=== PATIENT | male | born 1945 | race Caucasian/White ===

== ENCOUNTER 2017-02-16 13:20 | Inpatient (IN) ==
--- NOTE | 2017-02-16 14:17 | Diag Imaging Result Doc PS360 ---
EXAM: CHEST-2 VIEWS HISTORY: ATRIAL FIB TECHNIQUE: PA and lateral chest COMMENT: The inspiration is suboptimal. There is ill-defined opacity posteriorly seen on the lateral view which is probably in the left lower lobe. There are no previous studies available for comparison. IMPRESSION: Atelectasis versus pneumonia in the left lower lobe. Electronically signed by Casper Dejesus 02/16/2017 2:15 PM
[2017-02-16] MEDS ORDERED: NS 3,000 ML ONE (14:22)
[2017-02-16] MEDS ORDERED: CARDIZEM IV ONE (14:26)
[2017-02-16 14:32] LABS: INR 1.12; PROTIME 11.9 Seconds (9.2-11.7)
--- NOTE | 2017-02-16 14:49 | PROVIDER DOCUMENTATION ---
HPI-General Adult - General Chief Complaint: Nausea/Vomiting Stated Complaint: WEAK SICK AT MY STOMACH Time Seen by Provider: 02/16/17 13:50 Allergies/Adverse Reactions: Patient Allergies Allergy/AdvReac Type Severity Reaction Status Date / Time Penicillins Allergy Mild ITCHING Verified 02/16/17 14:30 Home Medications: Home Medication List Medication Instructions Recorded Confirmed Last Taken Type Citalopram [Celexa] 20 mg PO DAILY 12/27/12 12/27/12 12/29/12 07:00 History Folic Acid 5 mg PO DAILY 12/27/12 12/27/12 12/28/12 19:00 History Infliximab [Remicade] 500 mg IV DIRECTED 12/27/12 12/27/12 12/13/12 History Losartan Potassium 50 mg PO DAILY 12/27/12 12/27/12 12/29/12 07:00 History Methotrexate 7.5 mg PO DIRECTED 12/27/12 12/27/12 12/25/12 07:00 History Metoprolol [Lopressor] 50 mg PO BID 12/27/12 12/27/12 12/29/12 07:00 History ROSUVAstatin [Crestor] 20 mg PO DAILY 12/27/12 12/27/12 12/28/12 20:00 History Hydrocodone/Acetaminophen [Lortab 1 each PO Q6H PRN PRN #30 tablet 12/28/1211/06 10:00 Rx 7.5-500 Tablet] Methocarbamol [Robaxin-750] 750 mg PO Q8H #20 tablet 12/29/12 Unknown Rx Progress - PLAN OF CARE/RESULTS Progress/Plan/Lab Results: Vital Signs - 8 hr 02/16/17 13:43 02/16/17 14:29 Temperature 98.3 F Pulse Rate 174 H 154 H Respiratory Rate 18 21 Blood Pressure 141/113 92/50 O2 Sat by Pulse Oximetry 96 93 L Laboratory Results - last 24 hr 02/16/17 02/16/17 14:15 14:15 PT 11.9 H INR 1.12 PTT (Actin FS) 29.0 Troponin T < 0.010 Orders Category Date Time Status CHEST-2 VIEWS [RAD] Stat Exams 02/16/17 13:55 Completed CBC WITH ELECTRONIC DIFF [HEME] Stat Lab 02/16/17 14:18 Ordered COMPREHENSIVE METABOLIC PANEL [CHEM] Stat Lab 02/16/17 14:18 Ordered D-DIMER [CHEM] Stat Lab 02/16/17 14:18 Ordered PRO B-NATRIURETIC PEPTIDE Stat Lab 02/16/17 14:15 Received PROTIME WITH INR [COAG] Stat Lab 02/16/17 14:15 Received PTT [COAG] Stat Lab 02/16/17 14:15 Received TROPONIN T Stat Lab 02/16/17 14:15 Received TSH Stat Lab 02/16/17 14:18 Ordered URINE DRUG SCREEN Stat Lab 02/16/17 13:55 Uncollected 0.9% Sodium Chloride Inj [Ns] 1,000 ml Med 02/16/17 14:22 Discontinued .ROUTE As Directed Diltiazem [Cardizem] Med 02/16/17 14:26 Once 10 mg IV NOW ONE EKG [EKG] Stat Ther 02/16/17 13:54 Ordered Departure - Departure Referrals and Follow-Ups: Kvng Erickson MD [Primary Care Provider] -
[2017-02-16] MEDS: NS 1,000 ML IV ONE ×2 (15:00→15:10)
[2017-02-16] MEDS ORDERED: CARDIZEM 100 MG/NS 100 MG/100 ML IVPB IV SCH ×2 (15:20→16:24)
[2017-02-16] MEDS ORDERED: CARDIZEM 125 MG in NS 100 ML IV PRN (15:23)
[2017-02-16 15:26] LABS: MANUAL DIFF NEEDED? NO
[2017-02-16 15:29] LABS: BASO% 0.2 % (0.0-0.8); EOS# 0.02 X1000 (0.0-0.7); EOS% 0.2 % (0.0-10.0); HEMATOCRIT 45.6 % (42.0-52.0); HEMOGLOBIN 15.4 g/dL (14.0-18.0); IMM GRAN# 0.02 X1000 (0.0-0.04); IMM GRAN% 0.2 % (0.0-0.5); LYMPH# 1.97 X1000 (1.2-3.4); LYMPH% 18.2 % (20.5-51.1); MCH 33.6 PG (27-31); MCHC 33.8 g/dL (33-37); MCV 99.6 FL (81-99); MONO# 1.03 X1000 (0.11-0.59); MONO% 9.5 % (1.7-9.3); MPV 11.2 FL (7.4-10.4); NEUT% 71.7 % (42.2-75.2); PLT 254 X1000 (130-400); RBC 4.58 XMIL (4.7-6.1)
--- NOTE | 2017-02-16 15:45 | PROVIDER DOCUMENTATION ---
This chart was entered by Meghan Coleman Scribe, acting as scribe for Jeffery Fuentes MD. HPI-General Adult - General Chief Complaint: Nausea/Vomiting Stated Complaint: WEAK SICK AT MY STOMACH Time Seen by Provider: 02/16/17 13:50 Source: patient Allergies/Adverse Reactions: Patient Allergies Allergy/AdvReac Type Severity Reaction Status Date / Time Penicillins Allergy Mild ITCHING Verified 02/16/17 14:30 Home Medications: Home Medication List Medication Instructions Recorded Confirmed Last Taken Type Citalopram [Celexa] 20 mg PO DAILY 12/27/12 12/27/12 12/29/12 07:00 History Folic Acid 5 mg PO DAILY 12/27/12 12/27/12 12/28/12 19:00 History Infliximab [Remicade] 500 mg IV DIRECTED 12/27/12 12/27/12 12/13/12 History Losartan Potassium 50 mg PO DAILY 12/27/12 12/27/12 12/29/12 07:00 History Methotrexate 7.5 mg PO DIRECTED 12/27/12 12/27/12 12/25/12 07:00 History Metoprolol [Lopressor] 50 mg PO BID 12/27/12 12/27/12 12/29/12 07:00 History ROSUVAstatin [Crestor] 20 mg PO DAILY 12/27/12 12/27/12 12/28/12 20:00 History Hydrocodone/Acetaminophen [Lortab 1 each PO Q6H PRN PRN #30 tablet 12/28/1211/06 10:00 Rx 7.5-500 Tablet] Methocarbamol [Robaxin-750] 750 mg PO Q8H #20 tablet 12/29/12 Unknown Rx - History of Present Illness -Gen Adult Nature of Presenting Problems: Pt is 71 y/o M presents to the ED with nausea, vomiting and diaphoresis. Pt states was working in his yard this am and around 1100 he started sweating. Pt denies chest pain and shortness of breath. Location of Pain/Injury: reports: none Pain Radiation: reports: no radiation Quality of Pain: reports: none Severity: reports: mild Onset/Duration: reports: this afternoon (1100) Timing: reports: still present Context/Activities at Onset: reports: light activity Modifying Factors: improves with: nothing Associated Symptoms: reports: diaphoresis, nausea, vomiting. denies: anxiety, arm pain, back/neck pain, chest pain, constipation, cough, diarrhea, dizziness, EENT symptoms, fatigue, fever/chills, genitourinary problems, headaches, heartburn, joint pain, loss of appetite, malaise, muscle aches, sinus congestion /drainage, rash, seizure, shortness of breath, sensory/motor loss, pain with inspiration, swelling/mass in abdomen, syncope, weakness, trouble walking Similar Symptoms Previously?: No Recently seen or treated by another doctor?: No Review of Systems - Adult - REVIEW OF SYSTEMS - ADULT Constitutional: denies: chills, fever Eyes: denies: decreased vision, blurred vision, double vision Ears, Nose, Mouth & Throat: denies: ear pain, nose pain, throat pain Cardiovascular: denies: chest pain, heart murmur, irregular heart rate Respiratory: denies: cough, shortness of breath, wheezing Gastrointestinal: reports: nausea, vomiting. denies: abdominal pain, diarrhea Genitourinary: denies: dysuria, flank pain, hematuria Musculoskeletal: denies: bone pain, joint pain, neck pain Integumentary: denies: hives, itching, rash Neurological: denies: dizziness/vertigo, headache/migraines, numbness, seizure, syncope Psychiatric: denies: anxiety, depression, suicidal thoughts Endocrine: reports: excessive sweating. denies: change in skin pigment, increased hunger, increased thirst Hematologic/Lymphatic: reports: no symptoms reported Allergic/Immunologic: reports: no symptoms reported All Other Systems: Reviewed and Negative Past History - Adult - PAST MEDICAL HISTORY-ADULT Review of Records: reports: Nursing Assessment Review, Medications Reviewed, Social history reviewed & non-contributory. Major Childhood Illnesses: reports: denies history Cardiovascular: reports: HTN Respiratory: reports: sleep apnea Gastrointestinal: reports: denies history Obstetrical/Gynecological: reports: denies history Genitourinary: reports: denies history Musculoskeletal: reports: arthritis Neurological: reports: denies history Endocrine/Immune: reports: denies history Other Conditions: reports: denies history - PRIOR SURGERIES/PROCEDURES Surgical/Procedure History: reports: joint replacement - IMMUNIZATION STATUS Childhood Immunizations: See Nurse Assessment Flu Vaccine: See Nurse Assessment - FAMILY HISTORY Family History: reviewed, not pertinent - SOCIAL HISTORY Smoking: denies Substance Use: alcohol Alcohol Use Frequency: occasionally Number of drinks per typical drinking period:: 2 drinks Living Situation: family Physical Exam-General - PHYSICAL EXAM-ADULT Initial Vital Signs Reviewed: Yes - CONSTITUTIONAL General Appearance: appears well, alert, no apparent distress. negative: lethargic, slow to respond - EYES Eyes: PERRL/EOMI, pink conjunctivae. negative: pale conjunctivae, sunken eyes - HEAD, EARS, NOSE, MOUTH & THROAT HENMT: normocephalic/atraumatic, moist mucous membranes, normal ENT inspection. negative: angioedema, hearing deficit - NECK Neck: non-tender, normal inspection. negative: lymphadenopathy, tender lateral - RESPIRATORY Respiratory: chest non-tender, lungs clear, normal breath sounds. negative: rhonchi, stridor, wheezing - CARDIOVASCULAR Cardiovascular: normal peripheral pulses, tachycardia, other (new onset A fib with RVR). negative: regular rate, rhythm, systolic murmur - GASTROINTESTINAL (ABDOMEN) Abdominal Exam: normal bowel sounds, non tender, soft. negative: distended, rebound - LYMPHATIC Lymphatic: no adenopathy. negative: enlargement, streaking - MUSCULOSKELETAL Back Exam: normal inspection, no CVA tenderness, no vertebral tenderness. negative: ecchymosis, swelling Extremity: normal range of motion, normal inspection. negative: deformity, erythema, tenderness - SKIN Integumentary: normal color, normal turgor, warm/dry. negative: diaphoresis, ecchymosis, erythema, jaundice - NEUROLOGIC Neurologic: grossly normal. negative: aphasia, facial droop - PSYCHIATRIC Psych/Mental Status: normal mood/affect, oriented x 3. negative: paranoid, tearful Progress - PLAN OF CARE/RESULTS Progress/Plan/Lab Results: Vital Signs - 8 hr 02/16/17 13:43 02/16/17 14:29 Temperature 98.3 F Pulse Rate 174 H 154 H Respiratory Rate 18 21 Blood Pressure 141/113 92/50 O2 Sat by Pulse Oximetry 96 93 L Laboratory Results - last 24 hr 02/16/17 02/16/17 14:15 14:15 PT 11.9 H INR 1.12 PTT (Actin FS) 29.0 Troponin T < 0.010 Orders Category Date Time Status CHEST-2 VIEWS [RAD] Stat Exams 02/16/17 13:55 Completed CBC WITH ELECTRONIC DIFF [HEME] Stat Lab 02/16/17 14:18 Ordered COMPREHENSIVE METABOLIC PANEL [CHEM] Stat Lab 02/16/17 14:18 Ordered D-DIMER [CHEM] Stat Lab 02/16/17 14:18 Ordered PRO B-NATRIURETIC PEPTIDE Stat Lab 02/16/17 14:15 Received PROTIME WITH INR [COAG] Stat Lab 02/16/17 14:15 Completed PTT [COAG] Stat Lab 02/16/17 14:15 Completed TROPONIN T Stat Lab 02/16/17 14:15 Completed TSH Stat Lab 02/16/17 14:18 Ordered URINE DRUG SCREEN Stat Lab 02/16/17 13:55 Uncollected 0.9% Sodium Chloride Inj [Ns] 1,000 ml Med 02/16/17 14:22 Discontinued .ROUTE As Directed Diltiazem [Cardizem] Med 02/16/17 14:26 Discontinued 10 mg IV NOW ONE EKG [EKG] Stat Ther 02/16/17 13:54 Ordered Result Diagrams: 02/16/17 14:15 - REASSESSMENT Reassessment #1 Time Reassessed: 15:22 (Patient was given a total of 2 L NS. 10mg IV cardizem. BP dropped to 82/50. Patient BNP ~3200 no prior for comparison. Questionable LLL pneumonia vs atelectasis. Sepsis work up started. ) Reassessment #2 Time Reassessed: 15:38 (Discussed with Dr. Erickson in regards to patient admission. Stated patient will be assesed in ED by Dr. Erickson ) - CONSULTS/PCP/HOSPITALIST Notification #1 *Consult/PCP/Hospitalist*: . Time Discussed: 15:43 Consult Disposition: Will see in ED Departure - Departure Date of Disposition Decision: 02/16/17 Time of Disposition Decision: 15:43 DIAGNOSIS: New onset atrial fibrillation Sepsis Qualifiers: Sepsis type: sepsis due to unspecified organism Qualified Code(s): A41.9 - Sepsis, unspecified organism Disposition: ADMITTED INPATIENT 09 Certified Medical Emergency: Emergent Condition: Critical Referrals and Follow-Ups: Kvng Erickson MD [Primary Care Provider] - - Critical Care Note This patient required my direct & personal management of CC.: Yes Total Time (mins): 47 Critical Care Statement: This patient required my direct personal management to treat or rule out processes, the absence of which, could potentiallly result in sudden, clinically significant life or limb threatening deterioration. Attestation - Physician/ MARK Attestation Patient care was provided by Advanced Practice Provider:: No The physician spent face to face time with patient:: Yes Advanced Practice Provider documentation review:: Supervising physician onsite and consulted in the evaluation and care of this patient. The physician did have a face to face encounter with the patient. This chart was documented by the indicated scribe, (Meghan Coleman Scribe) and accurately reflects the services I performed and decisions made by me, Jeffery Fuentes MD, as attested by the provider's signature.
[2017-02-16 15:48] LABS: ALBUMIN 4.2 g/dL (3.5-5.0); CALCIUM 9.6 mg/dL (8.8-10.2); POTASSIUM 4.2 mmol/L (3.5-5.1); TOTAL BILIRUBIN 1.12 mg/dL (0.20-1.00); TOTAL PROTEIN 7.4 g/dL (6.3-8.3)
--- NOTE | 2017-02-16 15:55 | ED EKG INTERP ---
This chart was entered by Meghan Coleman Scribe, acting as scribe for Rafiq Barth MD. EKG Interpretation - EKG Time of EKG reading by physician:: 13:48 EKG Read and Signed by:: Prieto Barth EKG Interpretation (*Must complete 3 of following elements*): Abnormal Rate: 170 Rhythm: atrial fibrillation with rapid ventricular response Comments: left axis deviation; nonspecific ST and T wave abnormality Attestation - Physician/ MARK Attestation The physician spent face to face time with patient:: Yes Advanced Practice Provider documentation review:: Supervising physician onsite and consulted in the evaluation and care of this patient. The physician did have a face to face encounter with the patient. This chart was documented by the indicated scribe, (Meghan Coleman Scribe) and accurately reflects the services I performed and decisions made by me, Prieto Barth MD, as attested by the provider's signature.
[2017-02-16] MEDS ORDERED: CARDIZEM 125 MG in NS 100 ML IV SCH (16:30)
[2017-02-16] MEDS ORDERED: LANOXIN IV ONE (16:38)
[2017-02-16] MEDS: CARDIZEM 100 MG/NS 100 MG/100 ML IVPB IV SCH ×3 (16:56→18:14)
[2017-02-16] MEDS ORDERED: LEVAQUIN 750 MG/D5W 750 MG/150 ML IVPB IV ONE (17:28)
--- NOTE | 2017-02-16 17:50 | HISTORY AND PHYSICAL ---
PRIMARY CARE PHYSICIAN: Dr. Kvng Erickson. CHIEF COMPLAINT: Diaphoresis. HISTORY OF PRESENT ILLNESS: This is a 71-year-old white male with a complicated past medical history, presents for evaluation of the above-mentioned symptoms. Current history of present illness began at approximately 11 a.m. 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 Upon doing so, he developed profound diaphoresis. Patient states that he slowed his work, but was unable to halt the persistent diaphoresis. He noted some weakness as well as some mild nausea. He did complain of mild disorientation. Patient stopped work and ate lunch. He noted a loss of his appetite. Because of his persistent symptoms, he contacted my office. Unfortunately, we were not available at that time. He then contacted his . She instructed him to go to the emergency department immediately. Upon arrival, a full evaluation was pursued. The patient was noted to have atrial fibrillation with a rapid ventricular response. In addition, he was found to have a slightly elevated white blood cell count of 10.8 and a slightly abnormal chest x-ray. The patient will be admitted to the hospital for full evaluation and management of each of these conditions. Of note, patient denies chest pain, cough, congestion, fevers, chills, palpitations, shortness of breath, dysuria, hematuria, pyuria, or changes in bowel movements. He denies any sick contacts to his knowledge. PAST MEDICAL HISTORY: 1. History of left axis deviation per EKG. 2. Abnormal skin examination with multiple actinic keratoses. 3. Status post bilateral cataract removals. 4. Depression/anxiety. 5. Reflux disease. 6. Hypertension. 7. Hearing loss. 8. Hyperlipidemia. 9. Mild enlargement of the right ventricle and mild degree of pulmonary hypertension per echocardiogram in 2009. 10. Impaired fasting glucose. 11. Cervical disk disease. 12. Mild memory impairment. 13. Obstructive sleep apnea. 14. Obesity. 15. Osteopenia. 16. History of bilateral total hip arthroplasties. 17. Rheumatoid arthritis. 18. History of a Banegas's cyst removal of the right posterior knee in 1999. CURRENT MEDICATIONS: 1. Atorvastatin 40 mg 1/2 tablet at bedtime. 2. B-complex vitamin daily. 3. Calcium plus vitamin D twice daily. 4. Folic acid 1 mg daily. 5. Losartan 50 mg daily. 6. Meloxicam 15 mg daily as needed. 7. Methotrexate 2.5 mg 3 tablets on Mondays. 8. Metoprolol tartrate 25 mg twice daily. 9. Multivitamin daily. 10. Reclast once a year. 11. Remicade 100 mg every 8 weeks. 12. Sertraline 100 mg daily. 13. Tramadol 50 mg as needed. 14. Zyrtec 10 mg daily as needed. ALLERGIES: Patient states he is allergic to penicillin. SOCIAL HISTORY: The patient is previous smoker, having smoked 1 pack per day for 20 years. He stopped in November 1985. He has approximately 8 drinks per week. Denies illicit drug use. 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 He currently works for [employer]. He enjoys gardening, bird watching, and yard work. He exercises intermittently. FAMILY HISTORY: Patient's father passed at age 82 secondary to complications of congestive heart failure. Patient's mother is described as healthy at age 85. REVIEW OF SYSTEMS: A 12 point review of systems was performed. Pertinent positives and negatives are noted in history present illness. PHYSICAL EXAMINATION: VITAL SIGNS: Temperature 98.3 degrees, heart rate 127, respirations 18, blood pressure 92/58. GENERAL: Well nourished, well developed, no acute distress. HEENT: Normocephalic, atraumatic. Pupils equal, round, reactive to light. Extraocular muscles intact. Sclerae anicteric. Meno conjunctivae. Oral and nasopharynx clear without exudate. NECK: Supple. No lymphadenopathy. No thyromegaly. No bruits auscultated. CARDIOVASCULAR: Tachycardic. Irregularly irregular rhythm. No significant murmurs, rubs, or gallops. PULMONARY: Clear to auscultation bilaterally. ABDOMEN: Soft, nontender, nondistended. Positive bowel sounds. EXTREMITIES: Moves all extremities well. No significant clubbing, cyanosis, or edema. NEUROLOGIC: Cranial nerves 2 through 12 grossly intact. Motor and sensory grossly intact. PSYCHOLOGIC: Examination is appropriate. LABORATORY DATA: White blood cell count 10.81, hemoglobin 15.4, hematocrit 45.6, platelet count 254,000. PT 11.9, INR is 1.12, PTT is 29.0. D-dimer less than 0.010. Sodium 139, potassium 4.2, chloride 99, bicarb 21, BUN 25, creatinine 1.4, glucose 109, calcium 9.6, total bilirubin 1.12, total protein 7.4, albumin 4.2, alkaline phosphatase 61, AST 20, ALT 15. TSH is 3.64. Chest x- ray reveals atelectasis versus pneumonia in the left lower lobe. ASSESSMENT AND PLAN: This is a 71-year-old white male with a complicated past medical history as noted, presents for evaluation of diaphoresis. Full evaluation revealed atrial fibrillation with rapid ventricular response. Because of his elevated heart rate, slightly elevated white blood cell count, and slightly abnormal chest x-ray, patient met criteria for sepsis protocol. Each of these diagnoses will be pursued. 1. Admit to CICU. 2. Atrial fibrillation with rapid ventricular response - The patient has multiple risk factors. At this point, patient's heart rate remains elevated and his blood pressure is borderline. We will continue a Cardizem drip. We will add digoxin 0.25 mg as a now dose and again in 8 hours. We will follow serial cardiac enzymes. We will check a magnesium level. We will follow patient on telemetry overnight. I have discussed the case with Dr. Jade and he will be available for consultation. We will start Lovenox. 3. Sepsis protocol - At this point, I suspect patient's abnormalities are simply secondary to atrial fibrillation with rapid ventricular response and pulmonary atelectasis. As he has met criteria, we will pursue a sepsis protocol until this can be fully ruled out. We will check a CT scan of the chest. We will follow this closely. 4. Hypertension - The patient has a history of hypertension, currently being treated with losartan and metoprolol therapy. We will hold patient's losartan. We will follow patient's blood pressure closely while hospitalized. 5. Weakness/diaphoresis - This likely is secondary to his atrial fibrillation with rapid ventricular response. We will treat this as above. We will follow this closely. 6. Rheumatoid arthritis - This certainly complicates the patient's presentation. This also puts him at risk for underlying atypical infections. We will remain aware. 7. Depression/anxiety - We will continue patient on sertraline therapy. 8. Hyperlipidemia - Will continue patient on atorvastatin. 9. Fluid, electrolytes, nutrition - We will monitor electrolytes. Normal saline at KVO. Cardiac prudent diet. 10. Prophylaxis - Patient will be placed on subcutaneous Lovenox at therapeutic doses. cc: Kvng Erickson MD
[2017-02-16 17:54] LABS: UR AMPHETAMINES QUAL NONE DETECTED (NONE DETECT); UR BARBITUATES QUAL NONE DETECTED (NONE DETECT); UR BENZODIAZEPIN QUAL NONE DETECTED (NONE DETECT); UR CANNABINOIDS QUAL NONE DETECTED (NONE DETECT); UR COCAINE QUAL NONE DETECTED (NONE DETECT); UR METHADONE QUAL NONE DETECTED (NONE DETECT); UR OPIATES QUAL NONE DETECTED (NONE DETECT); UR OXYCODONE QUAL NONE DETECTED (NONE DETECT); UR PCP QUAL NONE DETECTED (NONE DETECT)
--- NOTE | 2017-02-16 18:49 | Diag Imaging Result Doc PS360 ---
EXAM: CT THORAX W/O CONTRAST HISTORY: Abnormal CXR TECHNIQUE: CT of the chest without contrast with dose reduction (clarity.) COMMENT: There are apparent fibrotic changes in the lung bases particularly in the costophrenic sulci posterior laterally. There are granulomata in the right lower lobe and spleen. There are no abnormal fluid collections. There is no evidence of significant adenopathy. There are some coronary calcifications and calcified nodes in the right hilum. There are degenerative changes in the thoracic spine. There is apparent ankylosis of the right glenohumeral joint. There are two subcentimeter noncalcified nodules in the right upper lobe on image 45 measuring less than 5 mm in diameter. There are no previous studies. IMPRESSION: Apparent tip pulmonary parenchymal fibrosis and granulomatous changes. Nonspecific right upper lobe nodules. The findings were discussed with Kvng Erickson MD at 02/16/2017 6:46 PM. Electronically signed by Casper Dejesus 02/16/2017 6:46 PM
[2017-02-16] MEDS: CALTRATE 600 + D PO SCH (21:59)
[2017-02-16] MEDS: LOVENOX SUBQ SCH (22:00)
[2017-02-16] MEDS: LOPRESSOR PO SCH (22:00)
[2017-02-16] MEDS: LIPITOR PO SCH (22:00)
[2017-02-16] MEDS: ULTRAM PO PRN (22:01)
[2017-02-17] MEDS ORDERED: LANOXIN IV ONE (01:00)
[2017-02-17 05:21] LABS: MANUAL DIFF NEEDED? NO
[2017-02-17 05:51] LABS: BASO% 0.5 % (0.0-0.8); EOS# 0.09 X1000 (0.0-0.7); EOS% 1.4 % (0.0-10.0); HEMATOCRIT 39.1 % (42.0-52.0); HEMOGLOBIN 12.9 g/dL (14.0-18.0); LYMPH# 2.37 X1000 (1.2-3.4); LYMPH% 37.2 % (20.5-51.1); MCH 33.6 PG (27-31); MCV 101.8 FL (81-99); MONO# 0.84 X1000 (0.11-0.59); MONO% 13.2 % (1.7-9.3); MPV 10.9 FL (7.4-10.4); NEUT% 47.7 % (42.2-75.2); PLT 186 X1000 (130-400); RBC 3.84 XMIL (4.7-6.1)
[2017-02-17 05:55] LABS: AGAP 15; ALBUMIN 3.6 g/dL (3.5-5.0); ALKALINE PHOSPHATASE 52 U/L (32-122); BUN 21 mg/dL (8-22); CALCIUM 8.5 mg/dL (8.8-10.2); CHLORIDE 104 mmol/L (98-107); COSMO 284; GOT 15 U/L (10-34); GPT 13 U/L (10-44); POTASSIUM 4.2 mmol/L (3.5-5.1); SODIUM 141 mmol/L (136-145); TCO2 22 mmol/L (25-35); TOTAL PROTEIN 6.2 g/dL (6.3-8.3)
[2017-02-17 05:58] LABS: FREE T4 1.43 ng/dL (0.93-1.70)
--- NOTE | 2017-02-17 06:37 | EKG Report ---
Test Performed on : 02/16/2017 1:48:32 PM Test Reason : NO ORDER Blood Pressure : / mmHG Vent. Rate : 170 BPM Atrial Rate : 197 BPM P-R Int : 000 ms QRS Dur : 078 ms QT Int : 260 ms P-R-T Axes : 000 -31 077 degrees QTc Int : 437 ms Atrial fibrillation. with rapid ventricular response. Left axis deviation Nonspecific ST and T wave abnormality Abnormal ECG No previous ECGs available Unconfirmed Result
[2017-02-17] MEDS: ZOLOFT PO SCH (09:22)
[2017-02-17] MEDS: THERA M PLUS PO SCH (09:22)
[2017-02-17] MEDS: FOLIC ACID PO SCH (09:22)
[2017-02-17] MEDS: CALTRATE 600 + D PO SCH ×2 (09:22→20:41)
[2017-02-17] MEDS: LANOXIN PO SCH (09:22)
[2017-02-17] MEDS: CARDIZEM LA PO SCH (09:22)
[2017-02-17] MEDS: LOVENOX SUBQ SCH (09:22)
--- NOTE | 2017-02-17 11:02 | EKG Report ---
Test Performed on : 02/17/2017 10:12:50 AM Test Reason : afib/ASHD/CHF Blood Pressure : / mmHG Vent. Rate : 057 BPM Atrial Rate : 057 BPM P-R Int : 148 ms QRS Dur : 088 ms QT Int : 440 ms P-R-T Axes : 045 -28 029 degrees QTc Int : 428 ms Sinus bradycardia. Otherwise normal ECG When compared with ECG of 16-FEB-2017 13:48, (Unconfirmed) Sinus rhythm. has replaced Atrial fibrillation. Vent. rate has decreased BY [address] no longer depressed in Anterior leads Leftward axis inferiorly III and AVF Flat T waves no longer evident in V2 Confirmed by Roland Mancia DO ([id number]) on 02/20/2017 4:37:50 PM
--- NOTE | 2017-02-17 11:42 | CONSULTATION ---
DATE OF CONSULTATION: 02/17/2017 REQUESTING PHYSICIAN: Dr. Erickson. REASON FOR CONSULTATION: New-onset atrial fibrillation, congestive heart failure. HISTORY: Mr. 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 He felt very weak at that time and slightly nauseous. He did not feel like eating. He got off work at about 1 p.m., and then after that, he chose to come to the emergency room for evaluation, suspecting that something was not right. In fact , when he came into the emergency room, he was found in atrial fibrillation with a rapid response. An electrocardiogram done at 1:48 p.m. showed atrial fibrillation, rate 170 beats per minute, a leftward axis, and a minor nonspecific ST change. The patient was placed on Cardizem drip and digoxin, and he was kept in the emergency room overnight, transferred to [facility], and overnight he has converted back to sinus rhythm. I am seeing him at 7 a.m. on February 17. The patient basically is back to his normal self. He is feeling well, somewhat tired, but having no discomfort in the chest, no swelling of the legs, no nausea, no more sweats, and no palpitations at all. The patient makes clear that he did not know that his pulse was irregular, he did not notice palpitations, he did not have any blackout spell. PAST MEDICAL HISTORY: His past medical history basically is negative for previous arrhythmia. He does have a history of hypertension for a number of years which has been treated by Dr. Erickson. He does have a history of elevated cholesterol which is also being treated by Dr. Erickson. He has been diagnosed with obstructive sleep apnea, and he has been treated by Dr. Harris with a CPAP system. He has rheumatoid arthritis for a long time, and this is being treated by Dr. Peralta with a combination of 2 drugs. He has some gastric reflux. He has had some neck arthritis. He has had no other major medical issues. He is not diabetic. He does have some history of anxiety. Also, there is some hearing loss in him. SURGICAL HISTORY: He has had a Banegas cyst removed. He had both hips replaced in the past. He has had cataract surgery. HOME MEDICATIONS: At this time are as follows: He takes folic acid 1 mg, methotrexate 7.5 daily, Zoloft 100 daily, calcium, magnesium 2 tablets daily, multivitamins daily, meloxicam 15 mg daily, Ultram 100 daily, Remicade 500 mg as directed, metoprolol 50 daily, losartan 50 daily. ALLERGIES: He is allergic to penicillin. REVIEW OF SYSTEMS: The patient states that since his penitentiary he has done very little activity at home. He says that when he retired about 5 years ago, he weighed about 210 pounds. Currently, he is 280 pounds. Body mass index is 40, making him morbidly obese. 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 Mancia. He has had some aches and pains in the neck for which he takes arthritis medication. No cardiac issues that he is aware of. SOCIAL HISTORY: He has been to his for nearly 50 years now. They have 3 grownup children ages 40, 38, and 36. He quit smoking at the age of 41 after smoking a pack a day for 20 years. He uses some alcoholic drinks from time to time. The patient has retired from [employer] about 5 or 6 years ago. 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 He has a business degree and marketing degree. FAMILY HISTORY: Somewhat positive for heart disease in his parents in their mid to early 80s. PHYSICAL EXAMINATION: Vital signs: His blood pressure today is 91/44, pulse 59 , temperature 97.6, respirations 18. General: He is awake, alert, oriented, in no distress. HEENT: Unremarkable. Skin: Shows evidence of vitiligo in the forearms. He does have some deformity of his legs probably related to rheumatoid arthritis. HEENT: Otherwise unremarkable. Neck veins are not distended. No cervical bruits. Chest; Sounds clear to auscultation and percussion. Cardiac: Heart sounds are regular and rhythmic at this time. I do not hear any gallop or murmur. Abdomen: Obese, nontender. Extremities: Good pulses, no peripheral edema. Neurological: Follows commands, moves four extremities. BLOOD WORK: Sodium 141, potassium 4.2, BUN 21, creatinine 0.8. On the day of admission, his creatinine was up to 1.4. BUN was 25. His proBNP is 3263. Troponins are negative. PT, PTT normal. D-dimer negative. Toxic drug screen negative. Hemoglobin 12.9. White cell count 6370. IMPRESSION: 1. Patient presenting with atrial fibrillation which appears to be new onset. This did not present with palpitations or chest pain. It manifested mostly as diaphoresis and weakness. He has converted already to sinus rhythm. That suggests paroxysmal atrial fibrillation. 2. History of hypertension. 3. History of sleep apnea syndrome. 4. Morbid obesity. 5. Hyperlipidemia. 6. Long-term history of rheumatoid arthritis on long-term therapy with immunosuppressing agents, Remicade and methotrexate. 7. Vitiligo. 8. Suspect diastolic heart failure related to the persistent atrial fibrillation. 9. Coronary artery calcification noted on CT of chest. RECOMMENDATION: At this point in time, I would suggest to pursue a myocardial perfusion stress test using Lexiscan protocol to exclude severe obstructive coronary heart disease. It is possible that this arrhythmia may be a manifestation of that condition, especially since he has gained so much weight since penitentiary and since his new job, which he started less than a month ago, is really very physical, and that is something he was not accustomed to. I would also recommend to this patient to initiate long-term anticoagulation with an oral anticoagulant like Eliquis 5 mg twice a day. If his echocardiogram and his stress test today are negative, then I believe he could probably be safely discharged. I would add a low dose of long- acting Cardizem CD 120 to his regimen, and I would be very happy to arrange for a followup at the office. Thank you again for the opportunity to participate in his evaluation. Best regards. The case was discussed with Dr. Erickson prior to the conclusion of this dictation. cc: MD Kvng Vazquez MD [facility] CENTERDouglas
[2017-02-17] MEDS: LOPRESSOR PO SCH ×2 (13:08→20:40)
[2017-02-17] MEDS ORDERED: LEXISCAN ONE (14:18)
[2017-02-17] MEDS ORDERED: LEVAQUIN 500 MG/D5W 500 MG/100 ML IVPB IV SCH (19:30)
--- NOTE | 2017-02-17 19:32 | ECHO REPORT ---
ORDER DATE: 02/16/2017 INTERPRETING PHYSICIAN: Dr. Jade REQUESTING PHYSICIAN: CLINICAL INDICATIONS: Atrial fibrillation, obese, hypertension. M-MODE MEASUREMENTS: Right ventricle: 3.9 cm. Left ventricle end diastole: 5.1 cm. Left ventricle end systole: 3.5 cm. Posterior wall: 1.1 cm. Interventricular septum: 1.1 cm. Left atrium: 4.9 cm. Aortic root: 3.7 cm. SUMMARY OF 2-DIMENSIONAL IMAGING: The left ventricular function is normal. Ejection fraction 73%. The ventricular chamber is probably within normal range. The right ventricle appears to be moderately enlarged. It shows normal function. The mitral valve looks normal. Color flow mapping indicates a mild degree of regurgitation. Pulse wave Doppler of mitral inflow is normal. Tissue Doppler of septal and lateral mitral annulus averages 11 cm per second. There is no diastolic dysfunction. The aortic valve is opens normally. Color flow mapping indicates no regurgitation. There is no aortic stenosis. The tricuspid valve shows a [id number] degree of regurgitation. The inferior vena cava is at the upper limits of normal to mildly enlarged. Pulmonary pressure is somewhere in the range of 44-49 mmHg. The pulmonic valve looks grossly normal with a mild degree of regurgitation. Pulmonary venous flow is normal. The left atrium is probably moderately enlarged. IMPRESSION: In summary, this study showed: 1. Excellent left ventricular systolic function. Ejection fraction 73%. No wall motion abnormality. 2. Ddhb-sy-dzyrpald degree of tricuspid and pulmonic regurgitation. 3. Pulmonary pressure estimated at 44-49 mmHg. 4. Normal diastolic function. The patient was in sinus rhythm during this study. 5. There is a moderately enlarged right ventricle. Clinical correlation recommended. cc: MD Kvng Vazquez MD
--- NOTE | 2017-02-17 19:45 | Diag Imaging Result Document ---
PROCEDURE NAME: MYOCARDIAL PERF SCAN, STR/REST - 02/17/2017 STUDY: Rest-stress walking Lexiscan myocardial perfusion study. INDICATION: Patient with congestive heart failure, coronary calcification, paroxysmal atrial fibrillation. Coronary heart disease is being evaluated. DESCRIPTION: The patient came into the [facility] on February 17, received a rest injection of technetium 99 sestamibi 15.9 millicuries. Multiple tomographic views of the cardiac structure were obtained at rest. Subsequently the patient underwent a walking Lexiscan protocol with infusion of Lexiscan 0.4 mg. At peak infusion, injected with technetium 99 sestamibi 44.2 millicuries. Multiple tomographic views of the cardiac structure were obtained following the completion of the protocol. SUMMARY OF ELECTROCARDIOGRAPHIC PORTION OF STUDY: Resting ECG showed sinus rhythm, rate 64 beats per minute. Resting blood pressure 170/87. Resting ECG shows no significant ST-T abnormalities. During the protocol, the heart rate increased to 98 beats per minute. Blood pressure went up to 180/88. The patient reported no chest pain, shortness of breath, or palpitations. The ECG showed occasional PVCs. No ischemic changes were noted. Following the completion of the infusion, the heart rate and blood pressure returned back to baseline. IMPRESSION: In summary, the electrocardiographic response to infusion of Lexiscan is deemed to be unremarkable. SUMMARY OF MYOCARDIAL PERFUSION PORTION OF STUDY: Poststress tomographic views of the left ventricle showed essentially normal myocardial perfusion. There is no convincing evidence of any postexercise defect. Rest images showed the same. There is no convincing evidence of scar. Polar plots revealed the same. There is no convincing evidence of inducible ischemia or myocardial scar. Gated SPECT shows normal left ventricular systolic function. Ejection fraction estimated at 84% with normal ventricular volumes. No wall motion abnormality. The lung-heart ratio is slightly elevated. TID is normal. IMPRESSION: In summary, this study showed: 1. Unremarkable electrocardiographic response to the walking Lexiscan protocol. 2. Normal poststress myocardial perfusion scan. There is no scintigraphic evidence of pharmacologically induced myocardial ischemia utilizing the walking Lexiscan protocol. 3. Normal left ventricular systolic function. Ejection fraction estimated at 84% with normal ventricular volumes. No wall motion abnormality. 4. The lung-heart ratio was slightly elevated which is consistent with the patient's initial presentation with pulmonary congestion. Clinical correlation recommended. cc: Yaron Jade MD
[2017-02-17] MEDS: LIPITOR PO SCH (20:40)
--- NOTE | 2017-02-17 20:43 | PROGRESS NOTE ---
DATE: 02/17/2017 SUBJECTIVE: Patient was admitted yesterday with atrial fibrillation with rapid ventricular response. He was placed on a Cardizem drip and provided IV digoxin. Within a matter of several hours, patient converted back to a normal sinus rhythm. Since that time, patient states he has felt much improved. Dr. Jade with Cardiology was consulted. A stress test was performed today which returned without evidence of ischemia. Echocardiogram did not suggest significant abnormalities. The patient states he is feeling well, however, interestingly, his blood cultures have returned positive. He denies fevers, chills, nausea, vomiting, shortness of breath, or chest discomfort. OBJECTIVE: Vital signs: Temperature maximum 98 degrees, heart rate 64-75, respirations 18, blood pressure 91 to 118 over 44 to 67. General: Well nourished, well developed, no acute distress. Cardiovascular: Regular rate and rhythm. No significant murmurs, rubs, or gallops. Pulmonary: Clear to auscultation bilaterally. Abdomen: Soft, nontender, nondistended. Positive bowel sounds. Extremities: Moves all extremities well. No significant clubbing, cyanosis, or edema. Dermatologic: Evaluation reveals no evidence of rash. LABORATORY DATA: White blood cell count 6.37, hemoglobin 12.9, hematocrit 39.1, platelet count 186,000. Sodium 141, potassium 4.2, chloride 104, bicarb 22, BUN 21, creatinine 0.8, glucose 98, calcium 8.5, total bilirubin 0.8. Total protein 6.2, albumin 3.6, alkaline phosphatase 52, AST 15, ALT 13, CK total 68, troponin less than 0.010. TSH 2.59, free T4 1.43. ASSESSMENT AND PLAN: 1. Atrial fibrillation with rapid ventricular response-as above, patient's stress test today returned negative. Echocardiogram was without significant abnormalities. I appreciate Dr. Jade's consultation. Earlier today, we converted patient to oral Cardizem and digoxin therapy. We will continue this. Eliquis therapy will be initiated in the a.m. We will follow patient's clinical course closely. 2. Positive blood cultures-this is quite interesting. There is no evidence of a definitive source. Initial evaluation suggested underlying Enterobacter. We will repeat blood cultures today. We will provide antibiotics overnight. I plan to discuss this further with Dr. Kaplan in the a.m. 3. Hypertension. The patient's blood pressure is controlled on metoprolol and Cardizem therapy. His losartan has been held. 4. Weakness/diaphoresis-this likely was secondary to atrial fibrillation with rapid ventricular response. He has achieved improvement with conversion. 5. Rheumatoid arthritis-this puts patient at risk for underlying infection. We will remain aware. 6. Depression/anxiety-we will continue patient on sertraline therapy. 7. Hyperlipidemia-we will continue atorvastatin therapy. 8. Disposition-at this point, patient continues to require detention care in a hospital setting. We will plan discharge home once appropriate. cc: Kvng Erickson MD
[2017-02-17 21:21] LABS: URINE CULTURE NEEDED? NO; URINE MICRO REVIEW NEEDED? NO; URINE SOURCE CLEAN CATCH
[2017-02-17 21:26] LABS: BILIRUBIN URINE NEGATIVE (NEGATIVE); BLOOD URINE TRACE (NEGATIVE); COLOR YELLOW; GLUCOSE URINE NEGATIVE (NEGATIVE); LEUKOCYTES URINE NEGATIVE (NEGATIVE); NITRITE URINE NEGATIVE (NEGATIVE); PROTEIN URINE NEGATIVE (NEGATIVE); SP GRAVITY URINE 1.016; TURBIDITY URINE CLEAR (CLEAR); UROBILINOGEN URINE NORMAL (NORMAL)
[2017-02-17 21:27] LABS: UR EPITHELIAL CELLS <10 /HPF (<10); URINE BACTERIA NEGATIVE /HPF; URINE RBC <10 /HPF (<10); URINE WBC <10 /HPF (<10)
[2017-02-17] MEDS: ULTRAM PO PRN (22:02)
[2017-02-18] MEDS: TYLENOL PO PRN ×2 (01:18→22:02)
[2017-02-18 05:06] LABS: MANUAL DIFF NEEDED? NO
[2017-02-18 05:12] LABS: BASO% 0.4 % (0.0-0.8); EOS# 0.09 X1000 (0.0-0.7); EOS% 1.6 % (0.0-10.0); HEMATOCRIT 39.4 % (42.0-52.0); HEMOGLOBIN 12.9 g/dL (14.0-18.0); LYMPH# 2.09 X1000 (1.2-3.4); LYMPH% 37.3 % (20.5-51.1); MCH 33.4 PG (27-31); MCHC 32.7 g/dL (33-37); MCV 102.1 FL (81-99); MONO# 0.73 X1000 (0.11-0.59); MPV 10.7 FL (7.4-10.4); NEUT% 47.7 % (42.2-75.2); PLT 182 X1000 (130-400); RBC 3.86 XMIL (4.7-6.1)
[2017-02-18 05:27] LABS: AGAP 13; BUN 17 mg/dL (8-22); CALCIUM 8.4 mg/dL (8.8-10.2); CHLORIDE 104 mmol/L (98-107); COSMO 283; POTASSIUM 4.3 mmol/L (3.5-5.1); SODIUM 141 mmol/L (136-145); TCO2 24 mmol/L (25-35)
[2017-02-18] MEDS: ELIQUIS PO SCH ×3 (06:06→21:01)
[2017-02-18] MEDS: CARDIZEM LA PO SCH (09:29)
[2017-02-18] MEDS: CALTRATE 600 + D PO SCH ×2 (09:29→21:01)
[2017-02-18] MEDS: ZOLOFT PO SCH (09:30)
[2017-02-18] MEDS: THERA M PLUS PO SCH (09:30)
[2017-02-18] MEDS: FOLIC ACID PO SCH (09:30)
[2017-02-18] MEDS: LANOXIN PO SCH (09:31)
[2017-02-18] MEDS: LOPRESSOR PO SCH ×2 (09:31→21:01)
--- NOTE | 2017-02-18 15:13 | CONSULTATION ---
DATE OF CONSULTATION: 02/18/2017 CONCLUSION: The patient was admitted to the hospital with atrial fibrillation with a rapid ventricular response. Two blood cultures were drawn; both are growing gram positive cocci. Whether this represents a true bacteremia or it could be that if the blood cultures have different organisms especially if they are identified as coagulation negative Staphylococcus, then I would say that they are contaminants and the patient does not really have a bacteremia. If the patient's organisms are the same, as mentioned above, I would say he has a true bacteremia and the portal of entry could be one of many sores the patient has on his arms where he is had skin cancers frozen off. One area especially on his elbow is indurated and appears to have cellulitis there, and that could have been a portal of entry for the presumed bacteremia. RECOMMENDATIONS: Because the patient has some difficulties with being dizzy and also because he has some decrease in his hearing, I am going to put him on daptomycin rather than vancomycin. A side effect of the antibiotic, namely muscle toxicity, has been explained to the patient. He agrees with treatment. 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 He developed diaphoresis. He became weak. He became anorectic. He was taking to the emergency room, and he was found to be in atrial fibrillation with a rapid ventricular response. Patient had blood drawn from his arm in 1 place, and it was put in a large tube, then the patient tells me he had 2 other blood withdrawals from his arm and each time those were put in a bottle. Therefore, I think he had 2 separate blood cultures drawn. Both of the blood cultures are growing gram positive cocci. The patient's CBC shows a white count of 5610. When he came in, it was 10,810. Hemoglobin is 12.9, the platelet count is a 182,000. Patient's creatinine is 0.7. GFR is greater than 60. The patient's liver function studies are normal. His creatine kinase is 68. The patient's CT scan of the chest showed fibrosis and granulomatous changes. There was no definite infiltrate. An echocardiogram showed no vegetations. CBC showed a white count of 5610, hemoglobin 12.9, and platelet count 182,000. Creatinine was 0.7. GFR is greater than 60. PAST MEDICAL HISTORY/REVIEW OF SYSTEMS: Eyes and Ears: As mentioned above, the patient has some decreased hearing. His vision is okay. Neck: No meningismus. Respiratory: No cough or dyspnea. Cardiac: No chest pain or palpitations. GI: The patient had anorexia, but he has not had nausea, vomiting, or diarrhea. In general, the patient came in. He said he felt cool and clammy but that has improved. He did have chills approximately 1 week ago while he was working. Genitourinary: The patient does not have dysuria or flank pain. Endocrine: Patient does not have diabetes or thyroid disease. Neurologic: The patient did not have a seizure. He does not have any motor or sensory deficit. PREVIOUS HOSPITALIZATIONS AND OPERATIONS: He has had bilateral total hip arthroplasties. He also had knee surgery. MEDICAL DISEASES: Positive for rheumatoid arthritis, hypertension, skin cancer, hyperlipidemia and, also, he is on immunosuppressive medication namely Remicade. INFECTIOUS DISEASE HISTORY: Positive for pneumonia. FAMILY HISTORY: Positive for hypertension and congestive heart failure. SOCIAL HISTORY: [place] He is . He is they have dogs for pets. The patient did smoke cigarettes for 20 years, but he stopped ini 11/1985. He has approximately 8 drinks per week. He denies illicit drug use. ALLERGIES: He is allergic to penicillin manifested by a rash some 45 years ago. He has had Keflex since then and tolerates it well. PHYSICAL EXAMINATION: Vital Signs: Temperature is 98.2 degrees, pulse 53, respirations 18, blood pressure 130/75. Patient weighs 277 pounds. General: This is an obese, elderly male. He is in no acute distress. Head, eyes, ears, nose, and throat: He can hear my spoken words and see near objects. No white patches were on the patient's tongue. Neck: No meningismus. Thorax: No increased AP diameter to the chest. Lungs: Clear to auscultation. Cardiovascular: Heart rate was regular. Abdomen: Soft and nontender. Neurologic: The patient is awake. He can move all of his extremities. Sensation is intact to touch. His memory as regarding his medical history is intact. Thank you for the consult. cc: MD Kvng Padilla MD
[2017-02-18] MEDS: CUBICIN 750 MG in NS 100 ML IV SCH (15:41)
--- NOTE | 2017-02-18 19:57 | PROGRESS NOTE ---
DATE: 02/18/2017 SUBJECTIVE: Overall, patient's condition continues to improve. Patient remained in a sinus- generated rhythm. Patient was converted to p.o. Cardizem and digoxin yesterday. This morning Eliquis therapy was initiated. He has tolerated each of these medications very well. As described yesterday, patient's blood cultures have returned positive. The patient has gram- positive cocci growing from both sets. Dr. Kaplan was consulted today. Daptomycin has been initiated. The patient had no evidence of fever, chills, nausea, vomiting, shortness of breath, or chest discomfort. OBJECTIVE: Vital signs: T-max 98.2 degrees, heart rate 50-74, respirations 18-21, blood pressure 105 to 130 over 51 to 68. General: Well nourished, well developed, no acute distress. Cardiovascular: Regular rate and rhythm. No significant murmurs, rubs, or gallops. Pulmonary: Clear to auscultation bilaterally. Abdomen: Soft, nontender, nondistended. Positive bowel sounds. Extremities: Moves all extremities well. No significant clubbing, cyanosis, or edema. Dermatologic: Evaluation reveals no evidence of rash. LABORATORY DATA: White blood cell count 5.61, hemoglobin 12.9, hematocrit 39.4, platelet count 182,000. Sodium 141, potassium 4.3, chloride 104, bicarb 24, BUN 17, creatinine 0.7, glucose 95, calcium 8.4. ASSESSMENT AND PLAN: 1. Atrial fibrillation with rapid ventricular response-as above, patient has converted to a sinus- generated rhythm. I appreciate Dr. Jade's consultation. Stress testing and echocardiography returned without significant abnormalities. The patient currently is being treated with p.o. Cardizem and digoxin. Eliquis was initiated for anticoagulation. Thus far, patient is tolerating well. 2. Positive blood cultures-this is quite interesting. The patient was started on sepsis protocol in the emergency department secondary to tachycardia, hypotension, slightly elevated white blood cell count, and an abnormal chest x-ray. CT scan of the chest confirmed fibrosis without evidence of pneumonia. Antibiotics were briefly initiated but discontinued. A full dose was not provided. Since that time, patient's clinical condition has demonstrated no evidence of underlying infection. Despite this, blood cultures have returned positive. I consulted Dr. Kaplan this morning. Daptomycin therapy was initiated until further identification has been made. Initial blood culture suggests an underlying coagulase-negative Staph. If both return positive with the same coagulase-negative staph, I anticipate we will be forced to treat patient for underlying bacteremia. If there are 2 different bacteria present, this may suggest contamination. Repeat blood cultures were drawn last night and will be followed. For now, we will continue daptomycin. 3. Hypertension-patient's blood pressure is controlled on metoprolol and Cardizem therapy. His losartan has been held. 4. Weakness/diaphoresis-patient's energy level has improved since the treatment of his atrial fibrillation. 5. Rheumatoid arthritis-we will remain aware. This certainly puts him at risk for underlying infection. 6. Depression/anxiety-upon discussing with the patient and , he has exhibited increasing symptoms recently. We will increase his sertraline to 150 mg. 7. Hyperlipidemia-we will continue atorvastatin therapy. 8. Disposition-at this point, patient continues to require detention care in the hospital setting. We will plan to discharge home once appropriate. cc: Kvng Erickson MD
[2017-02-18] MEDS: LIPITOR PO SCH (21:02)
[2017-02-18] MEDS: ULTRAM PO PRN (22:02)
[2017-02-19] MEDS: ELIQUIS PO SCH ×3 (08:19→20:08)
[2017-02-19] MEDS: FOLIC ACID PO SCH (08:19)
[2017-02-19] MEDS: CALTRATE 600 + D PO SCH ×3 (08:20→20:08)
[2017-02-19] MEDS: CARDIZEM LA PO SCH (08:20)
[2017-02-19] MEDS: ZOLOFT PO SCH (08:20)
[2017-02-19] MEDS: THERA M PLUS PO SCH (08:20)
[2017-02-19] MEDS: LANOXIN PO SCH (11:30)
[2017-02-19] MEDS: LOPRESSOR PO SCH ×3 (11:31→20:08)
[2017-02-19] MEDS: CUBICIN 750 MG in NS 100 ML IV SCH (14:01)
[2017-02-19] MEDS: LIPITOR PO SCH ×2 (19:48→20:08)
[2017-02-19] MEDS: TYLENOL PO PRN (19:49)
[2017-02-19] MEDS: ULTRAM PO PRN (23:22)
[2017-02-20] MEDS: FOLIC ACID PO SCH (08:00)
[2017-02-20] MEDS: CALTRATE 600 + D PO SCH ×2 (08:00→20:02)
[2017-02-20] MEDS: CARDIZEM LA PO SCH (08:00)
[2017-02-20] MEDS: ELIQUIS PO SCH ×2 (08:00→20:02)
[2017-02-20] MEDS: LANOXIN PO SCH (08:00)
[2017-02-20] MEDS: THERA M PLUS PO SCH (08:00)
[2017-02-20] MEDS: ZOLOFT PO SCH (08:00)
[2017-02-20] MEDS: LOPRESSOR PO SCH ×2 (08:00→20:02)
[2017-02-20] MEDS: KEFZOL 2 GM/D5W 2 GM/50 ML IVPB IV SCH ×2 (15:39→23:03)
--- NOTE | 2017-02-20 15:40 | PROGRESS NOTE ---
DATE: 02/20/2017 PRESENT ILLNESS: The patient has 2 blood cultures drawn on the same day that grew Staph epidermidis. They have the same susceptibility. It is unusual that the organism is susceptible to oxacillin and Ancef, but the 2 organisms the patient has are susceptible to 2 antibiotics, and thus I think the patient has a true bacteremia, the origin of which could be from one of the sores the patient has on his arms and face that became infected, and the patient had a transient bacteremia. The next day, the blood cultures were negative. Therefore, I think that he had a transient bacteremia. However, whether it is transient or persistent, it still needs to be treated because while the patient was bacteremic, the organism could have seeded other areas in the body, and unfortunately the patient has 2 prosthetic hips, 1 on each side, and those may have become hematogenously involved during the bacteremia. MEDICATIONS: The patient currently is on daptomycin. PHYSICAL EXAMINATION: Vital Signs: Temperature is 97.8 degrees, pulse 56, respirations 18, blood pressure 117/65. Generally: This is an obese, elderly male who is in no acute distress. Lungs: Clear to auscultation. Cardiovascular: Regular heart rate. I did not hear a murmur. Abdomen: Soft and nontender. Integument: Patient has numerous areas on his body where he has had treatment for skin cancer. Some these areas are erythematous, and I think that the patient's bacteremia arose from one of them. LABORATORY AND X-RAY: As mentioned above, the patient has 2 blood cultures positive for the same Staph epidermidis organism. Patient's CBC shows a white count of 5610, hemoglobin 12.9, and platelet count 182,000. Patient's creatinine was 0.7. The GFR was greater than 60. The patient's drug screen was negative. ASSESSMENT AND PLAN: 1. As mentioned above, I think the patient has a true bacteremia. I plan to treat him with Ancef 2 g IV every 8 hours. Normally, I treat a bacteremia for 2 weeks, but in someone who has foreign material and in this patient's case it is both total hip arthroplasties, may have become seeded and therefore, I plan to treat him for a total of 6 weeks with IV Ancef. Following this, I will put the patient on Keflex 500 mg p.o. every 12 hours for long-term treatment to hopefully prevent any flare up infection that might have gotten on the prosthesis. 2. Patient's comorbidities in this are that he has lesions on his skin, where some of them are erythematous and they could have been the source of a transient bacteremia. 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 Also, another comorbidity in this patient is that he is on Remicade. My plan now is to switch the patient to Ancef, put in a consult to have a PICC placed and then consult [facility] to supply the patient's home IV antibiotic. Also, patient has rheumatoid arthritis. The patient has skin cancers which frequently are treated, and cause the area to possibly become infected. cc: MD Kvng Padilla MD MTDDouglas
[2017-02-20] MEDS: LIPITOR PO SCH (20:02)
[2017-02-20] MEDS: TYLENOL PO PRN (20:02)
[2017-02-20] MEDS: ULTRAM PO PRN (20:04)
--- NOTE | 2017-02-21 03:49 | PROGRESS NOTE ---
DATE: 02/20/2017 ADDENDUM: The patient has a penicillin allergy. It was a rash but not urticaria that occurred in the 1970s. The patient has had Keflex in the past and has tolerated it well. Therefore, I think he will tolerate Ancef well. I have ordered that the nurse watch the patient during the first dose of Ancef. cc: MD Kvng Padilla MD
--- NOTE | 2017-02-21 03:49 | PROGRESS NOTE ---
DATE: 02/20/2017 ADDENDUM: The patient is on immunosuppressive therapy, including methotrexate and Remicade. I think the longer he can stay off of that while we are treating his infection, the better off it would be. I will leave to Dr. Erickson about if the immunosuppressive medication can be delayed, preferably with delaying both Remicade and methotrexate for 6 weeks. That would be best, but any delay in it would be better than not delaying the medication. cc: MD Kvng Padilla MD
[2017-02-21 05:20] LABS: INR 1.13
[2017-02-21] MEDS: KEFZOL 2 GM/D5W 2 GM/50 ML IVPB IV SCH ×2 (06:44→14:24)
[2017-02-21 07:46] LABS: MPV 11.2 FL (7.4-10.4)
--- NOTE | 2017-02-21 08:23 | PROGRESS NOTE ---
DATE: 02/21/2017 PRESENT ILLNESS: The patient has a Staph epidermidis bacteremia. It may have been a transient bacteremia but unfortunately even if it were, it could have hematogenously involved any place in the patient's body including his total hip arthroplasties. MEDICATION: The patient yesterday was switched to cefazolin. His right eye swelled a little bit after 1 of the doses but this morning he has no swelling and he appears to be tolerating the antibiotic well. PHYSICAL EXAMINATION: Vital Signs: Temperature is 98.4 degrees, pulse 72, respirations 18, blood pressure 116/60. General: Besides being obese the patient looks healthy. He has no complaints this morning. Lungs: Clear to auscultation. Cardiovascular: Regular heart rate. I did not hear a murmur. Abdomen: Soft and nontender. Integument: Patient had multiple sores on his arms. These are looking much better now. LAB AND X-RAY: There is no new lab or x-ray today. ASSESSMENT AND PLAN: The patient had a Staph bacteremia. It hematogenous could have involved both total hip arthroplasties. Because of this, I am going to treat the patient for 6 weeks with IV Ancef through a PICC. When I am done with that I will take out the PICC and place the patient on Keflex 500 mg p.o. every 12 hours for an indefinite period of time in order to suppress any remaining infection anywhere in his body and specifically his total hip arthroplasties. Patient's comorbidities are that he has skin lesions that appear to get infected. Another comorbidity is the fact that he has hip arthroplasties in place. Probably the biggest comorbidity is that the patient is on both Remicade and methotrexate. Ideally it would be best for him not to be on those medicines while we are treating him for his infection but that may not be possible because his rheumatoid arthritis might get a lot worse. Therefore, I will leave to Dr. Erickson' discretion and the patient's discretion how long the patient feels he can go without having nose medications. cc: MD Kvng Padilla MD
[2017-02-21] MEDS: CARDIZEM LA PO SCH (08:30)
[2017-02-21] MEDS: THERA M PLUS PO SCH (08:30)
[2017-02-21] MEDS: FOLIC ACID PO SCH (08:30)
[2017-02-21] MEDS: ELIQUIS PO SCH ×2 (08:30→20:09)
[2017-02-21] MEDS: LANOXIN PO SCH (08:31)
[2017-02-21] MEDS: CALTRATE 600 + D PO SCH ×2 (08:31→20:09)
[2017-02-21] MEDS: ZOLOFT PO SCH (08:31)
[2017-02-21] MEDS: LOPRESSOR PO SCH ×2 (08:32→20:10)
[2017-02-21] MEDS ORDERED: NS 250 ML ONE (12:35)
[2017-02-21] MEDS: LIPITOR PO SCH (20:10)
[2017-02-21 20:36] VITALS: BP 129/62
--- NOTE | 2017-02-22 14:26 | DISCHARGE SUMMARY ---
ADMISSION DATE: 02/16/2017 DISCHARGE DATE: 02/21/2017 ADMISSION DIAGNOSIS: Diaphoresis. DISCHARGE DIAGNOSES: 1. Atrial fibrillation with rapid ventricular response, converted. 2. Positive blood cultures/bacteremia secondary to Staphylococcus epidermidis. 3. Hypertension, present on arrival. 4. Weakness, improving. 5. Rheumatoid arthritis, present on arrival. 6. Depression/anxiety, present on arrival. 7. Hyperlipidemia, present on arrival. CONSULTATIONS: 1. Dr. Kaplan with Infectious Disease was consulted for further evaluation and management of his positive blood cultures. 2. Dr. Jade with Cardiology was consulted for further evaluation and management of atrial fibrillation with rapid ventricular response. PROCEDURES: 1. A chest x-ray performed on 02/16/2017 which revealed atelectasis versus pneumonia in the left lower lobe. 2. A CT scan of the chest was performed on 02/16/2017 which revealed apparent tip of pulmonary parenchymal fibrosis and granulomatous changes. Nonspecific right upper lobe nodules. 3. Echocardiogram was performed on 02/16/2017 which revealed excellent left ventricular systolic function. Ejection fraction 73%. No wall motion abnormality. Mild to moderate degree of tricuspid and pulmonic regurgitation. Pulmonary pressure is estimated at 44-49 mmHg. Normal diastolic function. The patient was in sinus rhythm during the study. There is a moderately enlarged right ventricle. 4. A myocardial perfusion study was performed on 02/16/2017 which revealed marked unremarkable electrocardiographic response to the walking Lexiscan protocol. Normal post stress myocardial perfusion scan. There is no evidence of pharmacologically induced myocardial ischemia utilizing the walking Lexiscan protocol. Normal left ventricular systolic function. Ejection fraction estimated at 84% with normal left ventricular volumes. No wall motion abnormality. HISTORY AND PHYSICAL EXAMINATION: See admit note. PHYSICAL EXAMINATION PRIOR TO DISCHARGE: Vital Signs: Temperature 98.1 degrees, heart rate 54, respirations 18, blood pressure is 129/62. General: Well nourished, well developed, no acute distress. Cardiovascular: Regular rate and rhythm. No significant murmurs, rubs, or gallops. Pulmonary: Clear to auscultation bilaterally. Abdomen: Soft, nontender, nondistended. Positive bowel sounds. Extremities: Moves all extremities well. No significant clubbing, cyanosis, or edema. Dermatologic: Evaluation reveals no evidence of rash. LABORATORY DATA PRIOR TO DISCHARGE: None. HOSPITAL COURSE: The patient was admitted as per history and physical examination, hospital course. Her condition is as follows: 1. Atrial fibrillation with rapid ventricular response - Upon admission, patient was noted to have a significantly elevated heart rate. The patient was started on a Cardizem drip and digoxin therapy. Patient ultimately converted spontaneously. Thereafter, patient was transitioned to oral digoxin and oral Cardizem. Eloquent therapy was initiated for anticoagulation. The patient tolerated each of these medications well. Patient be followed closely as an outpatient. Patient will be followed closely as an outpatient along with Dr. Jade. 2. Positive blood cultures - Upon admission, the patient met criteria for sepsis protocol. Blood cultures were drawn. Interestingly, patient grew Staphylococcus epidermidis, both with identical sensitivities. For this reason, it was felt aggressive treatment was most appropriate. Dr. Kaplan was consulted. Patient will require a total of 6 weeks IV Ancef. Thereafter, patient will be treated with Keflex 500 mg every 12 hours indefinitely. Patient will follow with Dr. Kaplan in several weeks. 3. Pulmonary nodules - Patient was noted to have very small pulmonary nodules per CT scan. We will plan to arrange followup. 4. Hypertension - While hospitalized, the patient was transitioned away from losartan therapy with the initiation of Cardizem. The patient's blood pressure has remained controlled while hospitalized. 5. Rheumatoid arthritis - Patient has long-standing disease. At this point, I would like for patient to attempt to hold his Remicade and methotrexate while he is being treated for bacteremia. We will follow this closely as an outpatient as well. 6. Depression/anxiety - While hospitalized, the patient was noted to have significant symptoms. Patient's sertraline was increased to 150 mg daily. 7. Hyperlipidemia - Patient was continued on atorvastatin therapy while hospitalized. DISCHARGE CONDITION: Good. DISPOSITION: Discharged to home. MEDICATIONS: 1. Eliquis 5 mg twice daily. 2. Atorvastatin 20 mg at bedtime. 3. Calcium plus vitamin D twice a day. 4. Diltiazem LA 120 mg daily. 5. Metoprolol 50 mg twice daily. 6. Multivitamin daily. 7. Sertraline 150 mg daily. 8. Acetaminophen 650 mg every 4 hours as needed. 9. Digoxin 125 mcg daily. 10. Tramadol 50 mg every 6 hours as needed. 11. Folic acid 1 mg daily. 12. Remicade 500 mg as directed (hold until after IV antibiotic treatment). 13. Meloxicam as needed. 14. Methotrexate 7.5 mg weekly. 15. Ancef for [address] Kaplan. 16. After completion of IV Ancef, Keflex 500 mg every 12 hours indefinitely. FOLLOWUP: Patient is to follow up with me in approximately 1-2 weeks. Left. cc: Kvng Erickson MD
== END 2017-02-21 20:49 | disposition home or self-care (01) ==
LOC: ED 13:20 → EDIPHOLD 16:55 → 3S 23:11
PROVIDERS: ADMIT Internal Medicine; ATTEND Internal Medicine